=== PATIENT | male | born 1945 | race Caucasian/White ===

== ENCOUNTER 2017-08-31 09:13 | Outpatient (CLI) | payer MEDICARE, BC ==
[2017-08-31 18:15] LABS: BUN - BLOOD UREA NITROGEN 16 mg/dL (6-20); CALCIUM 9.2 mg/dL (8.5-10.3); CARBON DIOXIDE - CO2 25 mmol/L (21-32); CHLORIDE 105 mmol/L (101-111); CHOL/HDL RATIO 4.7 (<5.0); CHOLESTEROL 204 mg/dL; GFR - MDRD 74 (>89); GLUCOSE 101 mg/dL (70-100); HDL CHOLESTEROL 43 mg/dL; POTASSIUM 4.1 mmol/L (3.5-5.0); SODIUM 137 mmol/L (135-145); TRIGLYCERIDES 159 mg/dL; VLDL CHOLESTEROL 32 mg/dL
== END 2017-08-31 09:14 | disposition home or self-care (01) ==
LOC: LAB.F 09:13
PROVIDERS: ATTEND Internal Medicine
DX: J30.9 Allergic rhinitis, unspecified (principal); E03.9 Hypothyroidism, unspecified; R05 Cough; K21.9 Gastro-esophageal reflux disease without esophagitis; F41.1 Generalized anxiety disorder; Z86.010 Personal history of colon polyps; I10 Essential (primary) hypertension; L81.9 Disorder of pigmentation, unspecified; F33.9 Major depressive disorder, recurrent, unspecified
CPT/HCPCS: 36415; 80048; 80061; 84443

== ENCOUNTER 2018-05-12 09:00 | Outpatient (CLI) | payer MEDICARE, BC ==
[2018-05-12 11:22] LABS: CHOL/HDL RATIO 2.1 (<5.0); CHOLESTEROL 99 mg/dL; HDL CHOLESTEROL 48 mg/dL; LDL CHOLESTEROL,CALCULATED 42 mg/dL; LDL/HDL RATIO 0.9 (<3.6); VLDL CHOLESTEROL 9 mg/dL
== END 2018-05-12 09:01 | disposition home or self-care (01) ==
LOC: LAB.F 09:00
PROVIDERS: ATTEND Internal Medicine
DX: Z00.00 Encounter for general adult medical examination without abnormal findings (principal); I10 Essential (primary) hypertension; J30.9 Allergic rhinitis, unspecified; K21.9 Gastro-esophageal reflux disease without esophagitis; F41.1 Generalized anxiety disorder; Z86.010 Personal history of colon polyps; E03.9 Hypothyroidism, unspecified; F33.9 Major depressive disorder, recurrent, unspecified
CPT/HCPCS: 36415; 80061; 83721

== ENCOUNTER 2018-09-20 09:10 | Outpatient (CLI) | payer MEDICARE, BC ==
[2018-09-20 18:15] LABS: BUN - BLOOD UREA NITROGEN 17 mg/dL (6-20); CALCIUM 9.1 mg/dL (8.5-10.3); CARBON DIOXIDE - CO2 25 mmol/L (21-32); CHLORIDE 106 mmol/L (101-111); CHOL/HDL RATIO 3.5 (<5.0); CHOLESTEROL 176 mg/dL; CREATININE 0.9 mg/dL (0.6-1.2); GFR - MDRD 83 (>89); GLUCOSE 102 mg/dL (70-100); HDL CHOLESTEROL 51 mg/dL; LDL CHOLESTEROL,CALCULATED 105 mg/dL; LDL/HDL RATIO 2.1 (<3.6); SODIUM 136 mmol/L (135-145); VLDL CHOLESTEROL 20 mg/dL
== END 2018-09-20 09:11 | disposition home or self-care (01) ==
LOC: LAB.F 09:10
PROVIDERS: ATTEND Internal Medicine
DX: I10 Essential (primary) hypertension (principal); J30.9 Allergic rhinitis, unspecified; F41.1 Generalized anxiety disorder; E03.9 Hypothyroidism, unspecified; K21.9 Gastro-esophageal reflux disease without esophagitis; F33.9 Major depressive disorder, recurrent, unspecified; Z12.5 Encounter for screening for malignant neoplasm of prostate
CPT/HCPCS: 36415; 80048; 80061; 83721; 84153; 84443

== ENCOUNTER 2019-06-06 13:52 | Outpatient (CLI) | payer MEDICARE, BC | END 2019-06-06 13:53 | disposition short-term general hospital (02) | LOC: EMS 13:52 | PROVIDERS: ATTEND Surgery | DX: R07.89 Other chest pain (principal); R06.00 Dyspnea, unspecified | CPT/HCPCS: A0425; A0427 ==

== ENCOUNTER 2019-08-28 09:21 | Outpatient (CLI) | payer MEDICARE, BC ==
[2019-08-28 17:47] LABS: CHOL/HDL RATIO 3.8 (<5.0); CHOLESTEROL 184 mg/dL; GLUCOSE 98 mg/dL (70-100); HDL CHOLESTEROL 48 mg/dL; LDL CHOLESTEROL,CALCULATED 119 mg/dL; LDL/HDL RATIO 2.5 (<3.6); VLDL CHOLESTEROL 17 mg/dL
== END 2019-08-28 09:22 | disposition home or self-care (01) ==
LOC: LAB.S 09:21
PROVIDERS: ATTEND Internal Medicine
DX: Z00.00 Encounter for general adult medical examination without abnormal findings (principal); J30.9 Allergic rhinitis, unspecified; K21.9 Gastro-esophageal reflux disease without esophagitis; F41.1 Generalized anxiety disorder; E78.5 Hyperlipidemia, unspecified; I10 Essential (primary) hypertension; E03.9 Hypothyroidism, unspecified; M25.512 Pain in left shoulder; F33.9 Major depressive disorder, recurrent, unspecified; Z12.5 Encounter for screening for malignant neoplasm of prostate
CPT/HCPCS: 36415; 80061; 82947; 84443; G0103; 83721; 84153

== ENCOUNTER 2020-10-02 08:31 | Outpatient (CLI) | payer BC, MEDICARE ==
[2020-10-02 15:43] LABS: CHOL/HDL RATIO 3.9 (<5.0); CHOLESTEROL 189 mg/dL; GLUCOSE 105 mg/dL (70-100); HDL CHOLESTEROL 49 mg/dL; LDL CHOLESTEROL,CALCULATED 115 mg/dL; LDL/HDL RATIO 2.3 (<3.6); VLDL CHOLESTEROL 25 mg/dL
[2020-10-02 16:38] LABS: FREE T4 (FREE THYROXINE) 1.11 ng/dL (0.58-1.64)
[2020-10-03 09:46] LABS: HEPATITIS C ANTIBODY NON-REACTIVE (NON-REACTIVE)
== END 2020-10-02 08:32 | disposition home or self-care (01) ==
LOC: LAB.S 08:31
PROVIDERS: ATTEND Internal Medicine
DX: Z00.00 Encounter for general adult medical examination without abnormal findings (principal); I10 Essential (primary) hypertension; E78.5 Hyperlipidemia, unspecified; E03.9 Hypothyroidism, unspecified; J30.9 Allergic rhinitis, unspecified; K21.9 Gastro-esophageal reflux disease without esophagitis; F41.1 Generalized anxiety disorder; Z86.010 Personal history of colon polyps; F52.4 Premature ejaculation; F33.9 Major depressive disorder, recurrent, unspecified; Z12.11 Encounter for screening for malignant neoplasm of colon
CPT/HCPCS: 36415; 80061; 82947; 83721; 84153; 84439; 84443; 86803

== ENCOUNTER 2021-05-22 15:12 | Outpatient (CLI) | payer MEDICARE, OTHER | END 2021-05-22 15:13 | disposition critical access hospital (66) | LOC: EMS 15:12 | DX: S69.91XA Unspecified injury of right wrist, hand and finger(s), initial encounter (principal); W17.89XA Other fall from one level to another, initial encounter; Y92.008 Other place in unspecified non-institutional (private) residence as the place of occurrence of the external cause | CPT/HCPCS: A0425; A0427 ==

== ENCOUNTER 2021-05-22 15:55 | Emergency (ER) | payer MEDICARE, OTHER ==
--- NOTE | 2021-05-22 16:03 | ED Physician Documentation ---
PD HPI UPPER EXT INJURY - Stated complaint Stated Complaint: R WRIST INJ - History obtained from History obtained from: Patient, EMS - History of Present Illness Location: Right, Wrist, Other (some tender right chestwall) Type of injury: Fall Where injury occurred: Home Timing - onset: Today Timing - details: Abrupt onset, Still present Worsened by: Moving, Palpating Associated symptoms: Swelling. No: Weakness, Numbness Similar symptoms before: Has not had sx before Review of Systems Constitutional: denies: Fever, Chills Nose: denies: Rhinorrhea / runny nose, Congestion Throat: denies: Sore throat Cardiac: reports: Chest pain / pressure (some pain right lateral chestwall after the fall.) Respiratory: denies: Cough GI: denies: Abdominal Pain Neurologic: denies: Focal weakness, Numbness, Confused, Head injury, LOC PD PAST MEDICAL HISTORY - Past Medical History Cardiovascular: Hypertension Respiratory: None Endocrine/Autoimmune: HyPOthyroidism GI: GERD HEENT: Chronic hearing loss Psych: Depression - Past Surgical History Past Surgical History: Yes General: Cholecystectomy, Appendectomy HEENT: Detached retina repair, Tonsil/Adenoidectomy - Present Medications Home Medications: Ambulatory Orders Medication Instructions Recorded Confirmed Amlodipine Besylate 5 mg ORAL DAILY 08/29/15 04/22/16 FLUoxetine [PROzac] 20 mg PO DAILY 08/29/15 04/22/16 Levothyroxine Sodium [Synthroid] 125 mcg PO DAILY 08/29/15 04/22/16 Cetirizine [ZyrTEC] 10 mg PO DAILY 04/22/16 04/22/16 Cholecalciferol (Vitamin D3) 2,000 unit PO DAILY 04/22/16 04/22/16 [Vitamin D3] Sulfamethoxazole/Trimethoprim 1 each PO BID 7 Days tablet 04/22/16 [Bactrim Ds Tablet] HYDROcod/ACETAM 5/325 [[place] 5/325] 1 ea PO Q6H PRN #18 tablet 05/22/21 - Allergies Allergies/Adverse Reactions: Allergies Allergy/AdvReac Type Severity Reaction Status Date / Time Nswrycb-Yoz-Dim Reductase Allergy Severe Cramps/Rhab Verified 05/22/21 16:11 Inhibitor domyolysis azelastine HCl * Allergy Respiratory Verified 05/22/21 16:11 [From Astelin] - Social History Does the pt smoke?: No Smoking Status: Never smoker Does the pt drink ETOH?: No Does the pt have substance abuse?: No - Immunizations Immunizations are current?: Yes PD ED PE NORMAL - Vitals Vital signs reviewed: Yes - General General: Alert and oriented X 3, No acute distress, Well developed/nourished - HEENT HEENT: Atraumatic - Neck Neck: Supple, no meningeal sign, No bony TTP - Cardiac Cardiac: RRR, No murmur - Respiratory Respiratory: Clear bilaterally, Other (minimal tenderness right anterolateral chestwall. No noted deformity. ) - Abdomen Abdomen: Soft, Non tender - Extremities Extremities: Other (lower extremities with FROM and not tender. Right wrist with tenderness distal radius with volar angulation. General swelling at wrist. Normal pulses, color and cap refill. ) - Neuro Neuro: Alert and oriented X 3, No motor deficit, Normal speech Results - Vitals Vitals: Vital Signs - 24 hr 05/22/21 05/22/21 16:06 17:22 Temperature 98.5 C H Heart Rate 74 77 Respiratory 18 16 Rate Blood Pressure 153/93 H 125/70 O2 Saturation 98 94 Oxygen O2 Source Room air Procedures - Splint (location) right wrist Splint applied by: Physician Type of splint: Fiberglass Other: Patient tolerated well, Neurovascular intact, Sling provided. No: Good alignment (only mild improvement with reduction, however it is close to be tolerated until follow up with Ortho in near follow up.) - Reduction Body part reduced: Right, Wrist Fracture or dislocation: Fracture Anesthesia: Hematoma block Reduction aftercare: NV intact, Splint applied, Sling, Patient tolerated well. No: Alignment improved PD MEDICAL DECISION MAKING - ED course Complexity details: reviewed results, re-evaluated patient (some improvement of length and radial deviation, but only minimal improvement in volar displacement. ), considered differential, d/w patient Departure - Departure Disposition: 01 Home, Self Care Clinical Impression: Accidental fall Qualifiers: Encounter type: initial encounter Qualified Code(s): W19.XXXA - Unspecified fall, initial encounter Chest wall contusion Qualifiers: Encounter type: initial encounter Laterality: right Qualified Code(s): S20.211A - Contusion of right front wall of thorax, initial encounter Distal radius fracture, right Qualifiers: Encounter type: initial encounter Fracture type: closed Fracture morphology: Domingo's Qualified Code(s): S52.541A - Domingo's fracture of right radius, initial encounter for closed fracture Condition: Stable Record reviewed to determine appropriate education?: Yes Instructions: ED Fx Colles Wrist Redu Requ Follow-Up: Artur Gonzalez MD [Provider Admit Priv/Credential] - Prescriptions: HYDROcod/ACETAM 5/325 [[place] 5/325] 1 ea PO Q6H PRN #18 tablet PRN Reason: Pain Comments: Your wrist fracture will need further reduction and quite possibly surgery for final repair. This will be up to the orthopedist on follow-up after the swelling is down. Call tomorrow for an appointment for early next week. Keep the splint in place with the wrist iced elevated and rested often. Ibuprofen or naproxen 3 times daily for pain. Add Tylenol or hydrocodone if needed for worse pain. Your chest x-ray appears normal without any obvious rib fractures or lung injury. You will be out of commission with the wrist use for likely 6 weeks. I am prescribing a short course of narcotic pain medication for you. These are potentially dangerous and addictive medications that should be used carefully. These medications may constipate you. Take an jmaw-hhl-jtdfmyy stool softener such as docusate twice daily with plenty of water while taking these medications. If you go 24 hours without a bowel movement, take bero-cxy-[id number] MiraLAX, per package instructions. Do not drink or drive while taking these medications. If you received narcotic or sedating medications while in the emergency department do not drive for 24 hours. Store this medication in a safe, secure place and out of reach of children. It is a violation of federal law to give or sell this medication to another person or to use in a manner other than prescribed. The ED will not refill narcotic prescriptions, including prescriptions lost or stolen. You can dispose of unwanted medications at the [facility]'s office or at several pharmacies such as [facility]. Discharge Date/Time: 05/22/21 18:17
[2021-05-22] MEDS ORDERED: KETOROLAC 30 MG/ML VIAL IVP STA (16:15)
[2021-05-22] MEDS ORDERED: HYDROmorphone 1 MG/ML CARPUJECT IVP STA (16:15)
[2021-05-22] MEDS ORDERED: BUPIVACAINE 0.5% PF 30 ML VIAL SUBQ ONE (16:24)
--- NOTE | 2021-05-22 16:34 | XRAY Report ---
PROCEDURE: Wrist 3 View RT INDICATIONS: fall; r/o fx TECHNIQUE: 3 views of the wrist were acquired. COMPARISON: None. FINDINGS: Bones: Comminuted impacted and moderately displaced fracture of the distal radial metaphysis with int ra-articular extension and gross incongruity of the distal radial articular surface. Triscaphe and fi rst CMC joint degeneration. Soft tissues: Associated soft tissue swelling IMPRESSION: Comminuted intra-articular fracture of the distal radius as above Reviewed by: Angelito Craven MD on 05/22/2021 4:32 PM PDT Approved by: Angelito Craven MD on 05/22/2021 4:32 PM PDT Station ID: [id number]
--- NOTE | 2021-05-22 16:38 | XRAY Report ---
PROCEDURE: Chest 1 View X-Ray INDICATIONS: chest pain TECHNIQUE: One view of the chest was acquired. COMPARISON: 08/29/2015 FINDINGS: Surgical changes and devices: None. Lungs and pleura: No pleural effusions or pneumothorax. Lungs are clear. Mediastinum: Tortuous thoracic aorta is seen. Heart size is enlarged. Bones and chest wall: No suspicious bony lesions. Overlying soft tissues appear unremarkable. IMPRESSION: No acute cardiopulmonary pathology. Reviewed by: Syd Brar MD on 05/22/2021 4:37 PM PDT Approved by: Syd Brar MD on 05/22/2021 4:37 PM PDT Station ID: [id number]
[2021-05-22 17:23] VITALS: BP 125/70
--- NOTE | 2021-05-22 18:09 | XRAY Report ---
PROCEDURE: Wrist 2 View RT INDICATIONS: post reduction TECHNIQUE: 3 views of the wrist were acquired. COMPARISON: 05/22/2021 at 1550 hours FINDINGS: A splint is present, obscuring fine bony detail. Bones: There is an impacted, comminuted fracture of the distal radius demonstrates moderate displacem ent and articular surface extension, as before. Alignment is not significantly changed. Scaphoid view: Not requested Soft tissues: No suspicious soft tissue calcifications. IMPRESSION: No significant change in alignment of distal radial fracture. Reviewed by: Viktor Selby MD on 05/22/2021 6:08 PM PDT Approved by: Viktor Selby MD on 05/22/2021 6:08 PM PDT Station ID: [id number]
== END 2021-05-22 18:17 | disposition home or self-care (01) ==
LOC: EDUNIT# → ED 15:55
DX: S52.541A Smith's fracture of right radius, initial encounter for closed fracture (principal); S20.211A Contusion of right front wall of thorax, initial encounter; W10.9XXA Fall (on) (from) unspecified stairs and steps, initial encounter; Y92.009 Unspecified place in unspecified non-institutional (private) residence as the place of occurrence of the external cause; I10 Essential (primary) hypertension
CPT/HCPCS: 25605; 71045; 73100; 73110; 96374; 99284; J1170

== ENCOUNTER 2021-05-28 09:24 | Day surgery (SDC) | payer MEDICARE, OTHER ==
[2021-05-28] MEDS ORDERED: CELECOXIB 100 MG CAPSULE PO ONE (09:34)
[2021-05-28] MEDS ORDERED: ACETAMINOPHEN 1,000 MG/100 ML 100 ML IV ONE (09:34)
[2021-05-28] MEDS ORDERED: ceFAZolin 2 GM/50 ML 2 GM/50 ML BAG IV ONE (09:34)
[2021-05-28] MEDS ORDERED: LACTATED RINGERS 1,000 ML IV ONE ×2 (10:08→15:27)
--- NOTE | 2021-05-28 10:28 | ANESTHESIA ---
Pre-Anesthesia VS, & Labs - Diagnosis R radial fracture - Procedure ORIF R radius Vital Signs: Temp Pulse Resp BP Pulse Ox 36.2 C L 66 16 148/79 H 98 05/28/21 09:59 05/28/21 09:59 05/28/21 09:59 05/28/21 09:59 05/28/21 09:59 Height: 5 ft 6 in Weight (kg): 92 kg Body Mass Index: 32.7 BMI Classification: Obese - NPO >8 hours - Lab Results Current Lab Results: Laboratory Tests 05/28/21 10:04: POC Whole Bld Glucose 110 H Home Medications and Allergies Amlodipine Besylate 5 mg ORAL DAILY 08/29/15 FLUoxetine [PROzac] 20 mg PO DAILY 08/29/15 Levothyroxine Sodium [Synthroid] 125 mcg PO DAILY 08/29/15 Cetirizine [ZyrTEC] 10 mg PO DAILY 04/22/16 Cholecalciferol (Vitamin D3) [Vitamin D3] 2,000 unit PO DAILY 04/22/16 Allergies/Adverse Reactions: Allergies Allergy/AdvReac Type Severity Reaction Status Date / Time Lniuwrc-Avz-Eek Reductase Allergy Severe Cramps/Rhab Verified 05/22/21 16:11 Inhibitor domyolysis azelastine HCl * Allergy Respiratory Verified 05/22/21 16:11 [From Astelin] epinephrine AdvReac Unknown Verified 05/28/21 09:45 Anes History & Medical History - Anesthetic History Anesthesia Complications: reports: No previous complications Family history of Anesthesia Complications: Denies Family history of Malignant Hyperthermia: Denies - Medical History Cardiovascular: reports: Hypertension Pulmonary: reports: None Gastrointestinal: reports: GERD Endocrine/Autoimmune: reports: HyPOthyroidism Smoking Status: Never smoker - Surgical History General: reports: Cholecystectomy, Appendectomy Eyes Ears Nose Throat (EENT): reports: Detached retina repair, Tonsil/Adenoidectomy Exam General: Alert, Oriented x3, Cooperative Dental: WNL Mouth Openin Fingerbreadth Neck Mobility: Normal Mallampati classification: I Thyromental Distance: 4-6 cm Respiratory: Lungs clear Cardiovascular: Regular rate Abdomen: Normal bowel sounds Extremities: No clubbing Neurological: Normal gait Mental/Cognitive Status: Alert/Oriented X3 Cognitive Status: Within normal limits Plan Anesthesia Type: General, Supraclavicular Block Regional Block: Per Surgeon's request for Post Op pain control Consent for Procedure(s) Verified and Reviewed: Yes Code Status: Attempt Resuscitation ASA classification: 2-Mild systemic disease Is this case an emergency?: No
[2021-05-28] MEDS ORDERED: ONDANSETRON 4 MG/2 ML VIAL IVP PRN (10:29)
[2021-05-28] MEDS ORDERED: HYDROmorphone 0.5 MG/0.5 ML SYRINGE IVP PRN (10:29)
[2021-05-28] MEDS ORDERED: ePHEDrine 50 MG/ML VIAL IVP PRN (10:29)
[2021-05-28] MEDS ORDERED: ATROPINE ABBOJECT 1 MG/10 ML SYRINGE IVP PRN (10:29)
[2021-05-28] MEDS ORDERED: MORPHINE 2 MG/ML CARPUJECT IVP PRN (10:29)
[2021-05-28] MEDS ORDERED: NALOXONE 0.4 MG/ML VIAL IVP PRN (10:29)
[2021-05-28] MEDS ORDERED: fentaNYL 100 MCG/2 ML VIAL IVP PRN (10:29)
[2021-05-28] MEDS ORDERED: LACTATED RINGERS 1,000 ML IV SCH (11:00)
[2021-05-28] MEDS ORDERED: oxyCODONE 5 MG TABLET PO PRN (11:25)
[2021-05-28] MEDS ORDERED: DEXAMETHASONE 10 MG/ML VIAL ONE (11:25)
[2021-05-28] MEDS ORDERED: ROPIVACAINE 0.5% PF 20 ML AMPULE ONE ×3 (11:25→11:29)
[2021-05-28] MEDS ORDERED: LIDOCAINE-MPF 2% 5 ML VIAL ONE (11:25)
[2021-05-28] MEDS ORDERED: MIDAZOLAM 2 MG/2 ML VIAL ONE (11:25)
[2021-05-28] MEDS ORDERED: KETOROLAC 15 MG/ML VIAL IVP STA (11:25)
[2021-05-28] MEDS ORDERED: PROPOFOL 200 MG/20 ML VIAL IVP ONE (11:25)
[2021-05-28] MEDS ORDERED: DEXAMETHASONE 4 MG/ML VIAL ONE (11:27)
[2021-05-28] MEDS ORDERED: ONDANSETRON 4 MG/2 ML VIAL ONE (11:27)
[2021-05-28] MEDS ORDERED: BUPIVACAINE 0.25% PF 30 ML VIAL ONE (11:28)
[2021-05-28] MEDS ORDERED: ePHEDrine 50 MG/ML VIAL IVP ONE (12:06)
[2021-05-28] MEDS ORDERED: fentaNYL 100 MCG/2 ML VIAL ONE (13:46)
--- NOTE | 2021-05-28 15:04 | OPERATIVE REPORT ---
Operative Report - General Procedure Date: 05/28/21 Planned Procedure: Open reduction internal fixation right distal radius fracture Pre-Op Diagnosis: Closed, displaced, intra-articular distal radius fracture right wrist Procedure Performed: Open reduction internal fixation right distal radius with Synthes spanning wrist plate, K wires, bone graft distal radius with allograft cancellous chips and DBM Post Op Diagnosis: Same as preoperative diagnosis - Procedure Note Primary Surgeon: Artur Gonzalez MD Secondary Surgeon: Tru DUGAN Anesthesia Technique: General ET tube, Regional block Estimated Blood Loss (mL): 50 Indications: This is a active, relatively healthy 75-year-old gentleman who took a fall down steps and sustained a closed, comminuted, displaced articular fracture with shortening and impaction of articular cartilage. Findings: He had a very comminuted intra-articular fracture of the right distal radius. There is shortening at the fracture site, fractures into both scaphoid and lunate fossa's affecting column stability and leading to subluxation of the radiocarpal joint. Complications: none - Other Other Information/Narrative: The patient was brought to the operating room table, placed in supine position with right arm over arm extension table. A pneumatic tourniquet was applied to the proximal right arm over cast padding. The C-arm image intensifier was utilized and a sterile drape was applied. The right upper extremity was prepped and draped in a sterile manner in the usual fashion. A timeout procedure was performed by the entire operating room team and all were in agreement. Fingertrap traction was applied to the fingers of the right hand, attached to a traction bow and weight that was placed off the edge of the table, 10 pounds. Traction radiographs were obtained and showed improved alignment. There was concern for impacted lunate articular fragment. The plan was for internal distractor using the Synthes spanning wrist plate. The plate was applied to skin and the proximal and distal holes were marked. An incision was made over the dorsal aspect of the right third metacarpal. Care was taken to avoid the sensory branch of cutaneous nerve. The extensor tendon was protected and the dorsal aspect of the metacarpal was exposed subperiosteally. A second excision was made over the proximal forearm. The fascia was split the extensor commonest, extensor pollicis and wrist extensor interval was developed down to bone. The wrist extensors were retracted in a radial direction in the finger extensors and ulnar direction. A third dorsal incision was made over the dorsum of the wrist splitting the retinaculum and releasing the extensor pollicis longus. The capsule was entered and there was a significant void to the dorsal aspect with fragments of articular cartilage. This was debrided and irrigated. Very fine cancellous bone chips were impacted into the bone defect in the metaphysis dorsally using bone impactor and the joint surface was covered with DBM bone putty. The lunate appeared to be intact. Traction was applied using fingertrap traction and 10 to 15 pounds of traction. The plate was secured distally through the distalmost hole. The plate had already been passed underneath the extensor tendons and the extensor pollicis and avoiding the extensors proximally as well. Care was taken to make certain that there was no plate compression of any tendinous structure. The plate was secured proximally with a bone clamp and intraoperative x-rays were obtained. The plate was then secured with a cortical screw in the proximal most hole of the plate. There 2 cortical screws that were first inserted, both nonlocking and both compressed the plate to bone. Finger tension was checked and there was full finger extension and full finger flexion and the alignment on AP and lateral radiographs appeared satisfactorily without excessive distraction and definite improved alignment of the extra articular and intra-articular fracture. An additional locking and and nonlocking screws were inserted to the proximal plate giving 3 screw purchase to the proximal plate and for screw purchase to the metacarpal using 3 locking screws in addition to the one nonlocking screw. This provided good fixation. The plate seem to be secured well on AP and lateral views. 2 additional 0.062 inch K wires were inserted from the radial styloid to achieve bicortical fixation and to stabilize the radial styloid. The tourniquet was deflated after 94 minutes. The wounds were thoroughly irrigated. There is full digital passive flexion and extension. The subcutaneous tissue was closed with 2-0 Vicryl and the skin was closed standstill tata. The K wires were covered with plastic sterile balls. Xeroform, bacitracin and a short arm volar splint was applied. He received 2 g of Ancef intravenously and tolerated the procedure well. A physician ortho assistant was utilized to protect vital structures and help with reduction and screw fixation with plate. In addition, the physician ortho assistant helped with wound closure and splint application.
[2021-05-28] MEDS ORDERED: KETOROLAC 15 MG/ML VIAL ONE (16:09)
--- NOTE | 2021-05-28 16:13 | ANESTHESIA POST OP EVALUATION ---
Anesthesia Post Eval - Post Anesthesia Eval Vitals: Last Vital Signs Temp 36.5 C 05/28/21 15:59 Pulse 89 05/28/21 15:59 Resp 14 05/28/21 15:59 BP 101/57 L 05/28/21 15:59 Pulse Ox 93 05/28/21 15:59 CV Function Including HR & BP: Stable Pain Control: Satisfactory Nausea & Vomiting: Negative Mental Status: Baseline Respiratory Status: Airway Patent Hydration Status: Satisfactory Anesthesia Complications: None
[2021-05-28 16:17] VITALS: BP 109/59
--- NOTE | 2021-05-28 20:03 | XRAY Report ---
PROCEDURE: OR C-Arm Procedure INDICATIONS: ORIF DISTAL RADIUS TECHNIQUE: 2 views ON termination of the procedure show a long dorsal fixation plate crossing from th e distal radius diaphysis across the carpal bones and then fixed at the third metacarpal diaphysis. COMPARISON: None. FINDINGS: Excellent alignment maintained by fracture fixations at the distal radius as described. IMPRESSION: Virtually normal anatomic alignment established by plain film imaging at termination of study. Reviewed by: Johny Ch MD on 05/28/2021 8:02 PM PDT Approved by: Johny Ch MD on 05/28/2021 8:02 PM PDT Station ID: [id number]
== END 2021-05-28 09:25 | disposition home or self-care (01) ==
LOC: SDS 09:24
PROVIDERS: ATTEND Orthopaedic Surgery
PROC: 0PSH04Z Reposition Right Radius with Internal Fixation Device, Open Approach (ICD-10-PCS; principal; 2021-05-28 11:30)
DX: S52.571A Other intraarticular fracture of lower end of right radius, initial encounter for closed fracture (principal); W10.9XXA Fall (on) (from) unspecified stairs and steps, initial encounter; Y93.H2 Activity, gardening and landscaping; Y92.018 Other place in single-family (private) house as the place of occurrence of the external cause; I10 Essential (primary) hypertension; K21.9 Gastro-esophageal reflux disease without esophagitis; E03.9 Hypothyroidism, unspecified; E66.9 Obesity, unspecified; Z68.32 Body mass index [BMI] 32.0-32.9, adult; Z79.899 Other long term (current) drug therapy
CPT/HCPCS: 25609; A9270; C1713; J0131; J0690; J7120

== ENCOUNTER 2021-06-03 20:18 | Emergency (ER) | payer MEDICARE, OTHER ==
[2021-06-03 20:43] LABS: BASOPHILS % (AUTO) 0.8 %; EOSINOPHILS % (AUTO) 1.5 %; HCT - HEMATOCRIT 39.7 % (42.0-52.0); HGB - HEMOGLOBIN 14.3 g/dL (14.0-18.0); LYMPHOCYTES % (AUTO) 16.3 %; MEAN CORPUSCULAR HEMOGLOBIN 36.2 pg (27.0-31.0); MEAN CORPUSCULAR VOLUME 100.5 fL (80.0-94.0); MEAN PLATELET VOLUME 9.4 fL (7.4-11.4); MONOCYTES % (AUTO) 8.7 %; NEUTROPHILS % (AUTO) 70.5 %; PLT - PLATELET COUNT 343 10^3/uL (130-450); RED BLOOD COUNT 3.95 10^6/uL (4.70-6.10); RED CELL DISTRIBUTION WIDTH 13.1 % (12.0-15.0); WHITE BLOOD COUNT 19.3 x10^3/uL (4.8-10.8)
[2021-06-03 20:45] LABS: BILIRUBIN,URINE NEGATIVE (NEGATIVE); GLUCOSE, URINE (UA) NEGATIVE (NEGATIVE); KETONES,URINE (UA) NEGATIVE (NEGATIVE); LEUKOCYTE ESTERASE, URINE NEGATIVE (NEGATIVE); NITRITE,URINE NEGATIVE (NEGATIVE); OCCULT BLOOD,URINE NEGATIVE (NEGATIVE); PROTEIN,URINE NEGATIVE (NEGATIVE); UROBILINOGEN,URINE 0.2 (NORMAL) E.U./dL (NORMAL)
[2021-06-03 20:49] LABS: ABNORMAL LYMPHS % (MANUAL) 0 %
[2021-06-03 20:50] LABS: CLARITY,URINE CLEAR (CLEAR)
[2021-06-03 20:56] LABS: ALBUMIN 4.6 g/dL (3.2-5.5); ALBUMIN/GLOBULIN RATIO 1.4 (1.0-2.2); BILIRUBIN,TOTAL 0.8 mg/dL (0.2-1.0); CALCIUM 9.3 mg/dL (8.5-10.3); CREATININE 1.7 mg/dL (0.6-1.2); POTASSIUM 3.8 mmol/L (3.5-5.0)
[2021-06-03 21:05] LABS: BAND NEUTROPHILS % (MANUAL) 1 %; BASOPHILS # (MANUAL) 0.2 10^3/uL (0-0.1); BASOPHILS % (MANUAL) 1 %; LYMPHOCYTES # (MANUAL) 2.7 10^3/uL (1.5-3.5); LYMPHOCYTES % (MANUAL) 7 %; MONOCYTES # (MANUAL) 2.7 10^3/uL (0.0-1.0); NEUTROPHILS # (MANUAL) 12.7 10^3/uL (1.5-6.6); REACTIVE LYMPHS % (MANUAL) 7 %
[2021-06-03 21:06] LABS: DIFFERENTIAL COMMENT MANUAL DIFFERENTIAL; PLATELET ESTIMATE, MANUAL NORMAL (130-450,000) (NORMAL); PLATELET MORPHOLOGY NORMAL APPEARANCE (NORMAL); RBC MORPHOLOGY (MULTIPLE) NORMAL APPEARANCE (NORMAL); WBC MORPHOLOGY (MULTIPLE) NORMAL APPEARANCE (NORMAL)
--- NOTE | 2021-06-03 23:23 | ED Physician Documentation ---
PD HPI ABD PAIN - Chief complaint Chief Complaint: Abd Pain - History obtained from History obtained from: Patient - History of Present Illness Timing - onset: Last night Timing - details: Abrupt onset, Now resolved, Intermittant Pain level max: 8 Pain level now: 0 Quality: Pain Location: RUQ, Other Radiation: Right flank Improved by: Other (nothing (spontaneously resolves)) Worsened by: Other (no exacerbating factors) Associated symptoms: Nausea, Vomiting. No: Fever, Diarrhea, Constipation Similar symptoms before: Has not had sx before Recently seen: Surgery (right wrist surgery to repair fracture last month) - Additional information Additional information: c/o episodic right flank pain with nausea and vomiting since last night. First episode was last night but resolved completely, reoccurred this afternoon after eating and again tonight after dinner. Currently asymptomatic. Denies h/o similar symptoms. Review of Systems Constitutional: denies: Fever Cardiac: reports: Reviewed and negative Respiratory: reports: Reviewed and negative GI: reports: Abdominal Pain, Nausea, Vomiting. denies: Abdominal Swelling, Constipation, Diarrhea : denies: Dysuria, Frequency Skin: denies: Rash PD PAST MEDICAL HISTORY - Past Medical History Past Medical History: Yes Cardiovascular: Hypertension Respiratory: None Neuro: None Endocrine/Autoimmune: HyPOthyroidism GI: GERD : None HEENT: Chronic hearing loss Psych: Depression, Anxiety Musculoskeletal: None Derm: None - Past Surgical History Past Surgical History: Yes General: Cholecystectomy, Appendectomy HEENT: Detached retina repair, Tonsil/Adenoidectomy - Present Medications Home Medications: Ambulatory Orders Medication Instructions Recorded Confirmed Amlodipine Besylate 5 mg ORAL DAILY 08/29/15 05/28/21 FLUoxetine [PROzac] 20 mg PO DAILY 08/29/15 05/28/21 Levothyroxine Sodium [Synthroid] 125 mcg PO DAILY 08/29/15 05/28/21 Cetirizine [ZyrTEC] 10 mg PO DAILY 04/22/16 05/28/21 Cholecalciferol (Vitamin D3) 2,000 unit PO DAILY 04/22/16 05/28/21 [Vitamin D3] HYDROcod/ACETAM 5/325 [[place] 5/325] 1 ea PO Q6H PRN #18 tablet 05/22/21 05/28/21 oxyCODONE [Roxicodone] 5 mg PO Q4-6H #30 tablet 05/28/21 Ondansetron Odt [Zofran] 4 mg TL Q6H PRN #10 tablet 06/04/21 Tamsulosin [Flomax] 0.4 mg PO DAILY #10 06/04/21 - Allergies Allergies/Adverse Reactions: Allergies Allergy/AdvReac Type Severity Reaction Status Date / Time Fafquvd-Ghy-Qju Reductase Allergy Severe Cramps/Rhab Verified 06/03/21 20:28 Inhibitor domyolysis azelastine HCl * Allergy Respiratory Verified 06/03/21 20:28 [From Astelin] epinephrine AdvReac Unknown Verified 06/03/21 20:28 - Social History Does the pt smoke?: No Smoking Status: Never smoker Does the pt drink ETOH?: No Does the pt have substance abuse?: No - Immunizations Immunizations are current?: Yes - POLST Patient has POLST: No PD ED PE NORMAL - Vitals Vital signs reviewed: Yes - General General: Alert and oriented X 3, No acute distress, Well developed/nourished - Cardiac Cardiac: RRR, No murmur - Respiratory Respiratory: No respiratory distress, Clear bilaterally - Abdomen Abdomen: Soft, Non tender - Back Back: No CVA TTP - Derm Derm: No rash Results - Vitals Vitals: Oxygen O2 Source Room air - Labs Labs: Laboratory Tests 06/03/21 06/03/21 06/03/21 20:37 20:39 20:39 WBC 19.3 H RBC 3.95 L Hgb 14.3 Hct 39.7 L MCV 100.5 H MCH 36.2 H MCHC 36.0 RDW 13.1 Plt Count 343 MPV 9.4 Neut # (Auto) Not Reportable Lymph # (Auto) Not Reportable [place] # (Auto) Not Reportable Eos # (Auto) Not Reportable Baso # (Auto) Not Reportable Absolute Nucleated RBC Not Reportable Total Counted 100 Band Neuts % (Manual) 1 Reactive Lymphs % (Man) 7 Abnorm Lymph % (Manual) 0 Nucleated RBC % Not Reportable Neutrophils # (Manual) 12.7 H Lymphocytes # (Manual) 2.7 Monocytes # (Manual) 2.7 H Eosinophils # (Manual) 1.0 H Basophils # (Manual) 0.2 H Differential Comment MANUAL DIFFERENTIAL WBC Morphology NORMAL APPEARANCE Platelet Estimate NORMAL (130-450,000) Platelet Morphology NORMAL APPEARANCE RBC Morph Micro Appear NORMAL APPEARANCE Sodium 134 L Potassium 3.8 Chloride 99 L Carbon Dioxide 26 Anion Gap 9.0 BUN 34 H Creatinine 1.7 H Estimated GFR (MDRD) 40 L Glucose 113 H Calcium 9.3 Total Bilirubin 0.8 AST 23 ALT 33 Alkaline Phosphatase 65 Total Protein 8.0 Albumin 4.6 Globulin 3.4 Albumin/Globulin Ratio 1.4 Lipase 41 Urine Color YELLOW Urine Clarity CLEAR Urine pH 7.0 Ur Specific [place] 1.015 Urine Protein NEGATIVE Urine Glucose (UA) NEGATIVE Urine Ketones NEGATIVE Urine Occult Blood NEGATIVE Urine Nitrite NEGATIVE Urine Bilirubin NEGATIVE Urine Urobilinogen 0.2 (NORMAL) Ur Leukocyte Esterase NEGATIVE Ur Microscopic Review NOT INDICATED Urine Culture Comments NOT INDICATED - Rads (name of study) CT A/P with IV contrast Radiology: Prelim report reviewed, See rad report PD MEDICAL DECISION MAKING - ED course Complexity details: reviewed results, re-evaluated patient, considered differential, d/w patient ED course: recent right wrist surgery which is incidental to tonights symptoms and findings. His description of symptoms is c/w renal colic and he is found to have right-sided UVJ stone with hydroureter/hydronephrosis. Given flomax with rx for same. He says he still has pain medication at home that was prescribed for post- operative pain and he can take this PRN for flank pain. Departure - Departure Disposition: 01 Home, Self Care Clinical Impression: Renal colic on right side Condition: Good Instructions: ED Stone Renal W Colic Follow-Up: David Stewart MD [Primary Care Provider] - Prescriptions: Tamsulosin [Flomax] 0.4 mg PO DAILY #10 Ondansetron Odt [Zofran] 4 mg TL Q6H PRN #10 tablet PRN Reason: Nausea / Vomiting Discharge Date/Time: 06/04/21 01:30
[2021-06-04] MEDS ORDERED: ONDANSETRON ODT 4 MG TABLET TL STA (00:35)
[2021-06-04 01:18] VITALS: BP 129/77
[2021-06-04] MEDS ORDERED: TAMSULOSIN 0.4 MG CAPSULE PO STA (01:19)
--- NOTE | 2021-06-04 08:54 | CT Report ---
PROCEDURE: Abdomen/Pelvis WO INDICATIONS: right flank pain TECHNIQUE: Noncontrast 5 mm thick sections acquired from the diaphragms to the symphysis. 5 mm coronal and sagi ttal reformats were then performed. For radiation dose reduction, the following was used: automated exposure control, adjustment of mA and/or kV according to patient size. COMPARISON: None. FINDINGS: Image quality: Excellent. ABDOMEN: Lung bases: Lung bases are clear. Heart size is normal. Solid organs: Liver and spleen are normal in size. Gallbladder normal Pancreas is normal in contou rs. No adrenal nodules. Kidneys are normal in size, without hydronephrosis or nephrolithiasis on th e left but there is a right-sided distal ureteral stone measuring up to 3 mm, producing moderate righ t hydronephrosis and hydroureter to that level and several scattered renal cortical cysts are also pr esent bilaterally.. Peritoneum and bowel: Unenhanced bowel loops demonstrate normal wall thickness and caliber. No free fluid or air. Nodes and vessels: No retroperitoneal or mesenteric adenopathy by size criteria. Aorta and inferior vena cava are normal in caliber. Miscellaneous: No ventral hernias. PELVIS: Genitourinary: Bladder wall thickness is normal. Miscellaneous: No inguinal hernias or adenopathy. Bones: No suspicious bony lesions. No vertebral body compression fractures. IMPRESSION: 3 mm impacted far distal right ureteral stone producing moderate right hydronephrosis and hydroureter to that level. No additional urinary tract stone is found. Scattered bilateral water density renal cortical cysts. Reviewed by: Johny Ch MD on 06/04/2021 8:53 AM PDT Approved by: Johny Ch MD on 06/04/2021 8:53 AM PDT Station ID: [id number]
== END 2021-06-04 01:30 | disposition home or self-care (01) ==
LOC: ED 20:18
DX: N13.2 Hydronephrosis with renal and ureteral calculous obstruction (principal); I10 Essential (primary) hypertension
CPT/HCPCS: 36415; 74176; 80053; 81003; 83690; 85025; 99284; A9270; Q0162; 81001; 87086

== ENCOUNTER 2021-06-10 08:34 | Outpatient (CLI) | payer MEDICARE, OTHER ==
[2021-06-10 14:47] LABS: BASOPHILS # (AUTO) 0.1 10^3/uL (0.0-0.1); BASOPHILS % (AUTO) 1.1 %; EOSINOPHILS # (AUTO) 0.2 10^3/uL (0.0-0.7); EOSINOPHILS % (AUTO) 2.1 %; HCT - HEMATOCRIT 39.4 % (42.0-52.0); HGB - HEMOGLOBIN 13.3 g/dL (14.0-18.0); LYMPHOCYTES # (AUTO) 2.8 10^3/uL (1.5-3.5); MEAN CORPUSCULAR HEMOGLOBIN 35.4 pg (27.0-31.0); MEAN CORPUSCULAR HGB CONC 33.8 g/dL (32.0-36.0); MEAN CORPUSCULAR VOLUME 104.8 fL (80.0-94.0); MEAN PLATELET VOLUME 10.2 fL (7.4-11.4); MONOCYTES # (AUTO) 0.7 10^3/uL (0.0-1.0); MONOCYTES % (AUTO) 6.7 %; NEUTROPHILS # (AUTO) 5.9 10^3/uL (1.5-6.6); NEUTROPHILS % (AUTO) 60.3 %; PLT - PLATELET COUNT 326 10^3/uL (130-450); RED BLOOD COUNT 3.76 10^6/uL (4.70-6.10); RED CELL DISTRIBUTION WIDTH 13.3 % (12.0-15.0); WHITE BLOOD COUNT 9.7 x10^3/uL (4.8-10.8)
[2021-06-10 15:03] LABS: BILIRUBIN,URINE NEGATIVE (NEGATIVE); GLUCOSE, URINE (UA) NEGATIVE (NEGATIVE); KETONES,URINE (UA) NEGATIVE (NEGATIVE); LEUKOCYTE ESTERASE, URINE NEGATIVE (NEGATIVE); NITRITE,URINE NEGATIVE (NEGATIVE); OCCULT BLOOD,URINE NEGATIVE (NEGATIVE); PROTEIN,URINE NEGATIVE (NEGATIVE); UROBILINOGEN,URINE 0.2 (NORMAL) E.U./dL (NORMAL)
[2021-06-10 15:06] LABS: BUN - BLOOD UREA NITROGEN 18 mg/dL (6-20); CALCIUM 8.7 mg/dL (8.5-10.3); CARBON DIOXIDE - CO2 20 mmol/L (21-32); CHLORIDE 100 mmol/L (101-111); CHOL/HDL RATIO 4.9 (<5.0); CHOLESTEROL 196 mg/dL; GFR - MDRD 73 (>89); GLUCOSE 111 mg/dL (70-100); HDL CHOLESTEROL 40 mg/dL; LDL CHOLESTEROL,CALCULATED 110 mg/dL; LDL/HDL RATIO 2.8 (<3.6); POTASSIUM 3.9 mmol/L (3.5-5.0); SODIUM 134 mmol/L (135-145); TRIGLYCERIDES 229 mg/dL; VLDL CHOLESTEROL 46 mg/dL
[2021-06-10 15:10] LABS: CLARITY,URINE CLEAR (CLEAR)
[2021-06-10 15:12] LABS: THYROID STIMULATING HORMONE 6.69 uIU/mL (0.34-5.60)
[2021-06-10 15:13] LABS: CREATININE,URINE 101.4 mg/dL; MICROALBUM/CREATININE RATIO,UR 9.9 ug/mg (<30.0)
[2021-06-10 15:28] LABS: BACTERIA,URINE Rare /HPF (None Seen); CRYSTALS,URINE 6-10 Calcium Oxalate /LPF; RBC,URINE None Seen /HPF (0-5); SQUAMOUS EPITHELIAL CELL,UR RARE Squamous (<= Few); WBC,URINE 0-3 /HPF (0-3)
[2021-06-10 16:02] LABS: FREE T4 (FREE THYROXINE) 1.05 ng/dL (0.58-1.64)
== END 2021-06-10 08:35 | disposition home or self-care (01) ==
LOC: LAB.S 08:34
PROVIDERS: ATTEND Internal Medicine
DX: F41.1 Generalized anxiety disorder (principal); E78.5 Hyperlipidemia, unspecified; I10 Essential (primary) hypertension; E03.9 Hypothyroidism, unspecified; N20.0 Calculus of kidney; F33.9 Major depressive disorder, recurrent, unspecified; S62.91XS Unspecified fracture of right hand, sequela; N13.30 Unspecified hydronephrosis
CPT/HCPCS: 36415; 80048; 80061; 81001; 82043; 82570; 83721; 84439; 84443; 85025; 87086

== ENCOUNTER 2021-07-08 11:00 | Outpatient (CLI) | payer MEDICARE, OTHER ==
--- NOTE | 2021-07-08 17:21 | XRAY Report ---
PROCEDURE: Wrist 3 View RT INDICATIONS: INTRAARTICULAR FX OF DISTAL END OF R RADIUS TECHNIQUE: 3 views of the wrist were acquired. COMPARISON: 05/22/2021 FINDINGS: Bones: Postsurgical changes compatible with ORIF of comminuted, intra-articular distal radial fractur e noted. Two K wires have been placed across the radial fracture for internal fixation. Orthopedic screws in t he right third metacarpal and the distal diaphysis of the radius with orthopedic plate across the emmy al carpal joint. Soft tissues: No suspicious soft tissue calcifications. IMPRESSION: Expected postsurgical change for ORIF of distal radius fracture. Reviewed by: Erika Ureña MD, PhD on 07/08/2021 5:20 PM PDT Approved by: Erika Ureña MD, PhD on 07/08/2021 5:20 PM PDT Station ID: [id number]
== END 2021-07-08 23:59 | disposition home or self-care (01) ==
LOC: DI.N 11:00
PROVIDERS: ATTEND Physician Assistant
DX: S52.571A Other intraarticular fracture of lower end of right radius, initial encounter for closed fracture (principal)

== ENCOUNTER 2021-08-21 09:00 | Outpatient (CLI) | payer MEDICARE, OTHER ==
--- NOTE | 2021-08-21 09:36 | XRAY Report ---
PROCEDURE: Wrist 3 View RT INDICATIONS: FRACTURE OF LOWER END OF RIGHT RADIUS TECHNIQUE: 3 views of the wrist were acquired. COMPARISON: X-ray wrist 07/08/2021 FINDINGS: Bones: Fusion is present from the mid radius to the third metacarpal. Hardware is intact without evid ence of hardware fracture or periprosthetic loosening. Comminuted, intra-articular distal radial frac ture is present. There has been interval pin removal. Anatomic alignment remains stable. Mild interva l healing.. No suspicious bony lesions. Soft tissues: No suspicious soft tissue calcifications. IMPRESSION: Postsurgical radial metacarpal fusion changes are present with interval pin removal. Alignment is sta ble with minimal interval healing of comminuted intra-articular distal radial fracture. Reviewed by: Teresa Fajardo MD on 08/21/2021 9:35 AM PDT Approved by: Teresa Fajardo MD on 08/21/2021 9:35 AM PDT Station ID: [id number]
== END 2021-08-21 23:59 | disposition home or self-care (01) ==
LOC: DI.N 09:00
PROVIDERS: ATTEND Orthopaedic Surgery
DX: S52.571D Other intraarticular fracture of lower end of right radius, subsequent encounter for closed fracture with routine healing (principal)

== ENCOUNTER 2021-09-22 11:00 | Outpatient (CLI) | payer MEDICARE, OTHER ==
--- NOTE | 2021-10-02 09:08 | XRAY Report ---
PROCEDURE: Wrist 3 View RT INDICATIONS: FRACTURE OF LOWER END OF RIGHT RADIUS TECHNIQUE: 3 views of the wrist were acquired. COMPARISON: Right wrist radiographs 08/21/2021 FINDINGS: Bones: Postsurgical changes are again seen from carpal fixation with a metallic plate extending from the radius to the third metacarpal. A comminuted intra-articular fracture of the distal radius is re demonstrated without significant change in alignment. The lucent fracture line is still visualized. Soft tissues: No suspicious soft tissue calcifications. IMPRESSION: Stable postsurgical changes in alignment of the distal radial fracture. Reviewed by: Ramsey Morrow MD on 10/02/2021 9:07 AM PDT Approved by: Ramsey Morrow MD on 10/02/2021 9:07 AM PDT Station ID: [id number]
== END 2021-09-22 11:01 | disposition home or self-care (01) ==
LOC: DI.N 11:00
PROVIDERS: ATTEND Orthopaedic Surgery
DX: S52.571A Other intraarticular fracture of lower end of right radius, initial encounter for closed fracture (principal); Z48.89 Encounter for other specified surgical aftercare

== ENCOUNTER 2021-10-29 07:32 | Day surgery (SDC) | payer MEDICARE, OTHER ==
[2021-10-29] MEDS ORDERED: CELECOXIB 100 MG CAPSULE PO ONE (07:46)
[2021-10-29] MEDS ORDERED: CEFAZOLIN SODIUM IN 0.9 % NACL 2 GM/100 ML BAG IV ONE (07:47)
[2021-10-29] MEDS ORDERED: LACTATED RINGERS 1,000 ML IV ONE ×2 (08:12→11:46)
--- NOTE | 2021-10-29 08:52 | ANESTHESIA ---
Pre-Anesthesia VS, & Labs - Diagnosis ORIF R wrist - Procedure R wrist hardware removal Vital Signs: Temp Pulse Resp BP Pulse Ox 36.4 C L 57 L 14 143/83 H 97 10/29/21 07:48 10/29/21 07:48 10/29/21 07:48 10/29/21 07:48 10/29/21 07:48 Height: 5 ft 7 in Weight (kg): 94.7 kg Body Mass Index: 32.7 BMI Classification: Obese - NPO >8 hours Home Medications and Allergies Amlodipine Besylate 5 mg ORAL DAILY 08/29/15 FLUoxetine [PROzac] 20 mg PO DAILY 08/29/15 Levothyroxine Sodium [Synthroid] 125 mcg PO DAILY 08/29/15 Allergies/Adverse Reactions: Allergies Allergy/AdvReac Type Severity Reaction Status Date / Time [id number] Reductase Allergy Severe Cramps/Rhab Verified 10/29/21 08:03 Inhibitor domyolysis [Kqtsilq-Pxh-Xdz Reductase Inhibitor] azelastine HCl * Allergy Respiratory Verified 10/29/21 08:03 [From Astelin] epinephrine AdvReac uncontrolled Verified 10/29/21 08:03 heart racing Anes History & Medical History - Anesthetic History Anesthesia Complications: reports: No previous complications Family history of Anesthesia Complications: Denies Family history of Malignant Hyperthermia: Denies - Medical History Cardiovascular: reports: Hypertension Pulmonary: reports: None Gastrointestinal: reports: GERD Urinary: reports: None Neuro: reports: None Musculoskeletal: reports: None Endocrine/Autoimmune: reports: HyPOthyroidism Blood Disorders: reports: None Skin: reports: None Smoking Status: Never smoker - Surgical History General: reports: Cholecystectomy, Appendectomy Eyes Ears Nose Throat (EENT): reports: Detached retina repair, Tonsil/Adenoidectomy Orthopedic: reports: Other Exam General: Alert, Oriented x3, Cooperative Dental: WNL Mouth Openin Fingerbreadth Neck Mobility: Normal Mallampati classification: III Thyromental Distance: less than 4 cm Respiratory: Lungs clear Cardiovascular: Regular rate Plan Anesthesia Type: General, Supraclavicular Block Consent for Procedure(s) Verified and Reviewed: Yes Code Status: Attempt Resuscitation ASA classification: 2-Mild systemic disease Is this case an emergency?: No
[2021-10-29] MEDS ORDERED: KETOROLAC 15 MG/ML VIAL IVP STA (08:59)
[2021-10-29] MEDS ORDERED: oxyCODONE 5 MG TABLET PO PRN (08:59)
[2021-10-29] MEDS ORDERED: ROPIVACAINE 0.5% PF 20 ML AMPULE ONE (09:04)
[2021-10-29] MEDS ORDERED: MIDAZOLAM 2 MG/2 ML VIAL ONE (09:05)
[2021-10-29] MEDS ORDERED: fentaNYL 100 MCG/2 ML VIAL ONE ×2 (09:05→12:11)
[2021-10-29] MEDS ORDERED: DEXAMETHASONE 4 MG/ML VIAL ONE (09:05)
[2021-10-29] MEDS ORDERED: PROPOFOL 200 MG/20 ML VIAL IVP ONE (09:07)
[2021-10-29] MEDS ORDERED: KETAMINE 500 MG/10 ML VIAL ONE (09:47)
[2021-10-29] MEDS ORDERED: ePHEDrine 50 MG/ML VIAL IVP ONE (09:58)
[2021-10-29] MEDS ORDERED: ONDANSETRON 4 MG/2 ML VIAL IVP PRN (10:02)
[2021-10-29] MEDS ORDERED: MORPHINE 2 MG/ML CARPUJECT IVP PRN (10:02)
[2021-10-29] MEDS ORDERED: NALOXONE 0.4 MG/ML VIAL IVP PRN (10:02)
[2021-10-29] MEDS ORDERED: HYDROmorphone 0.5 MG/0.5 ML SYRINGE IVP PRN (10:02)
[2021-10-29] MEDS ORDERED: ePHEDrine 50 MG/ML VIAL IVP PRN (10:02)
[2021-10-29] MEDS ORDERED: fentaNYL 100 MCG/2 ML VIAL IVP PRN (10:02)
[2021-10-29] MEDS ORDERED: ATROPINE ABBOJECT 1 MG/10 ML SYRINGE IVP PRN (10:02)
[2021-10-29] MEDS ORDERED: PROPOFOL 500 MG/50 ML 500 MG/50 ML VIAL ONE (10:07)
[2021-10-29] MEDS ORDERED: LACTATED RINGERS 1,000 ML IV SCH (11:00)
--- NOTE | 2021-10-29 11:32 | OPERATIVE REPORT ---
Operative Report - General Procedure Date: 10/29/21 Planned Procedure: Removal of Synthes dorsal plate right wrist and tenolysis of extensor pollicis longus tendon. Pre-Op Diagnosis: Healed fracture right distal radius with plate fixation, tenodesis effect t Procedure Performed: Removal of bridge plate dorsal aspect right wrist and tenolysis of extensor pollicis longus tendon Post Op Diagnosis: Healed fracture right distal radius, tenodesis effect to extensor pollicis - Procedure Note Primary Surgeon: Artur Gonzalez MD Secondary Surgeon: Tru DUGAN Anesthesia Provider: Inocencia Gimenez CRNA Anesthesia Technique: General LMA Estimated Blood Loss (mL): 10 Indications: This is a relatively active 76-year-old man who sustained an injury to his right wrist about 5 months ago. He sustained a comminuted fracture, intra-articular, right distal radius with radiocarpal dislocation. He underwent a designed two- stage procedure. The first stage was the open reduction internal fixation and insertion of the dorsal bridge plate extending from third metacarpal, across the wrist joint and secured proximally to the radial shaft. Today is a second stage procedure to remove the plate and also to do a tenolysis of the extensor pollicis longus as his mobility to thumb extension is decreased with a tenodesis-like effect noted over the wrist joint.His fractures have radiographically healed. His color, motion and sensation are intact to fingers but does have decreased excursion to right thumb, particularly the extensor pollicis longus. The tendon is intact but he seems to have a tenodesis-like effect and limited excursion mobility. Patient has been doing quite well with his postoperative recovery Findings: Fracture of the right distal radius is completely healed. There was scarring at the operative site as expected but the worst was over the middle incision; extensor pollicis longus. The extensor pollicis longus over the distal radius had tenodesis because of scar tissue adhering to plate and skin above. The distal end of the tendon looked intact and normal but proximal to the wrist the tendon was calcified over an area of about 2-1/2 cm. This area did not show sign of normal tendon. There was some attrition of the extensor pollicis longus tendon over the dorsum of the distal radius but the tendon was intact. The muscle belly of the extensor pollicis appeared diminutive. The extensor pollic is brevis muscle and tendon appeared normal. All of the other tendons also appeared normal over the dorsum of the wrist. Complications: None - Other Other Information/Narrative: The patient was brought to the operating room, placed in the supine position with right arm over arm extension table. A pneumatic tourniquet had been ap plied to the proximal right arm over cast padding. The right upper extremity was prepped and draped in sterile manner in the usual fashion. A timeout procedure was performed by the entire operating room team and all were in agreement. The patient did receive 2 g of Ancef intravenously. The C-arm image intensifier was available for use and was covered with a sterile drape. The right upper extremity was exsanguinated and the pneumatic tourniquet was elevated to 200 mmHg. The 3 previous incisions were utilized. These incisions included the right third metacarpal, third extensor compartment and radial shaft. All of the incisions had healed very well. The distal incision was opened over the right third metacarpal, taking down scar tissue carefully using tension to help guide the dissection down to the dorsal plate overlying the third metacarpal. The extensor tendons were protected and the screw holes with their screws were identified. There were 4 screws in the distal plate and all were removed with the appropriate Synthes screwdriver. The plate that had been utilized was a dorsal Synthes bridge plate. The proximal incision was opened. Again dissection occurred using tension to help guide the dissection between the brachial radialis and extensors with plate identification and removal of 3 screws. The most proximal screw was associated with a fracture of the screw between head and threads, leaving a small portion of the screw within the medullary canal and cortex. This could not be removed without over drilling. The third incision was then opened carefully with as this is the area where there was most scarring. There was scarring to the plate. All of the overlying tendons were intact but the extensor pollicis longus was abnormal particularly in the area from the joint and proximal where there was an area of tendon diminution and calcification; there was not normal tendon in the area of the calcification overlying the distal radius. The extensor pollicis longus was placed on slight traction and the tendon was freed from distal to proximal and from normal to abnormal tissue. There was not significant quality tendon proximal because of calcification of the tendon. The tendon was intact, extensor pollicis longus. All of the scar tissue around the tendon had been freed. The wounds were irrigated. The tourniquet was deflated after about 80 minutes. Blood loss was minimal. Hemostasis was achieved with electrocautery. The C arm image intensifier was used to confirm removal of the plate which was done after the screws had been removed. The fracture of the distal radius is completely healed. The skin was closed with a 3-0 subcuticular, Dermabond and a well-padded bulky dressing including hand, wrist and forearm. Patient tolerated procedure well. A physician administrative office assistant was utilized to help with prepping and draping, exposure, retraction and protection of vital structures, dressing and closure.
--- NOTE | 2021-10-29 11:38 | XRAY Report ---
PROCEDURE: OR C-Arm Procedure INDICATIONS: HARDWARE REMOVAL RIGHT TECHNIQUE: 2 views of the wrist were acquired utilizing intraoperative C-arm apparatus.. COMPARISON: 09/22/2021 FINDINGS: Bones: Orthopedic plate and screws spanning from the third metacarpal to the right radius have been r emoved. Comminuted fracture of the distal radius is unchanged in appearance. Soft tissues: No suspicious soft tissue calcifications. IMPRESSION: Status post removal of orthopedic plate and screws. Reviewed by: Erika Ureña MD, PhD on 10/29/2021 11:36 AM PST Approved by: Erika Ureña MD, PhD on 10/29/2021 11:36 AM PST Station ID: [id number]
--- NOTE | 2021-10-29 11:54 | ANESTHESIA POST OP EVALUATION ---
Anesthesia Post Eval - Post Anesthesia Eval Vitals: Last Vital Signs Temp 36 C L 10/29/21 11:48 Pulse 67 10/29/21 11:48 Resp 10 L 10/29/21 11:48 BP 140/84 H 10/29/21 11:48 Pulse Ox 94 10/29/21 11:48 CV Function Including HR & BP: Stable Pain Control: Satisfactory Nausea & Vomiting: Negative Mental Status: Baseline Respiratory Status: Airway Patent Hydration Status: Satisfactory Anesthesia Complications: None
[2021-10-29] MEDS ORDERED: ACETAMINOPHEN 1,000 MG/100 ML 100 ML IV ONE ×3 (12:25→12:31)
[2021-10-29] MEDS ORDERED: oxyCODONE 5 MG TABLET ONE (12:55)
[2021-10-29 13:14] VITALS: BP 133/64
== END 2021-10-29 07:33 | disposition home or self-care (01) ==
LOC: SDS 07:32
PROVIDERS: ATTEND Orthopaedic Surgery
DX: Z47.2 Encounter for removal of internal fixation device (principal); S52.591D Other fractures of lower end of right radius, subsequent encounter for closed fracture with routine healing; M65.841 Other synovitis and tenosynovitis, right hand; I10 Essential (primary) hypertension; E03.9 Hypothyroidism, unspecified; E66.9 Obesity, unspecified; Z68.32 Body mass index [BMI] 32.0-32.9, adult; Z87.891 Personal history of nicotine dependence; Z79.899 Other long term (current) drug therapy
CPT/HCPCS: 20680; 25295; A9270; J0131; J0690; J7120

== ENCOUNTER 2024-05-03 11:13 | Outpatient (CLI) | payer MEDICARE, OTHER ==
[2024-05-03 14:26] LABS: ESTIMATED AVERAGE GLUCOSE 105 mg/dL (70-100); HEMOGLOBIN A1c% 5.3 % (4.27-6.07)
[2024-05-03 14:27] LABS: BUN - BLOOD UREA NITROGEN 23 mg/dL (6-20); CALCIUM 9.8 mg/dL (8.5-10.3); CARBON DIOXIDE - CO2 25 mmol/L (21-32); CHLORIDE 107 mmol/L (101-111); CHOL/HDL RATIO 3.9 (<5.0); CHOLESTEROL 171 mg/dL; CREATININE 1.2 mg/dL (0.6-1.3); GFR - MDRD 59 (>89); GLUCOSE 89 mg/dL (74-104); HDL CHOLESTEROL 44 mg/dL; LDL CHOLESTEROL,CALCULATED 97 mg/dL; LDL/HDL RATIO 2.2 (<3.6); POTASSIUM 4.3 mmol/L (3.5-4.5); SODIUM 137 mmol/L (135-145); TRIGLYCERIDES 152 mg/dL (48-352); VLDL CHOLESTEROL 30 mg/dL
[2024-05-03 14:42] LABS: THYROID STIMULATING HORMONE 2.72 uIU/mL (0.34-5.60)
== END 2024-05-03 11:14 | disposition home or self-care (01) ==
LOC: LAB.S 11:13
PROVIDERS: ATTEND Internal Medicine
DX: E78.5 Hyperlipidemia, unspecified (principal); I10 Essential (primary) hypertension; E03.9 Hypothyroidism, unspecified; Z13.1 Encounter for screening for diabetes mellitus; Z12.5 Encounter for screening for malignant neoplasm of prostate
CPT/HCPCS: 36415; 80048; 80061; 83036; 84443; G0103; 83721; 84153